=== PATIENT | female | born 1980 | race Hispanic/Latino ===

== ENCOUNTER 2017-01-19 14:45 | Emergency (ER) | payer MEDICAID, OTHER ==
[2017-01-19 14:45] VITALS: BMI 19.5
[2017-01-19 15:06] VITALS: BP 108/62; PULSE 75; RESP 16; TEMP 98; O2SAT 99
--- NOTE | 2017-01-19 16:33 | ED PDOC ---
HPI: Female Pain Time Seen by Provider: 01/19/17 15:01 Chief Complaint (Nursing): Female Genitourinary Chief Complaint (Provider): Burning on urination, urinary frequency x 2 days History Per: Patient History/Exam Limitations: no limitations Onset/Duration Of Symptoms: Days Current Symptoms Are (Timing): Still Present Severity: Moderate Quality Of Discomfort: Burning Associated Symptoms: Other (No back pain ). denies: Fever, Chills, Nausea, Vomiting, Loss Of Appetite Alleviating Factors: None Additional Complaint(s): PT states she has gotten kidney infection in the past and was worried when pain began. No fever/chills. No N/V. No back pain. Past Medical History Reviewed: Historical Data, Nursing Documentation, Vital Signs Vital Signs: Last Vital Signs Temp 98.0 F 01/19/17 14:58 Pulse 75 01/19/17 14:58 Resp 16 01/19/17 14:58 BP 108/62 01/19/17 14:58 Pulse Ox 99 01/19/17 14:58 - Medical History PMH: No Chronic Diseases - Surgical History Surgical History: No Surg Hx - Family History Family History: States: No Known Family Hx - Living Arrangements Living Arrangements: With Family - Social History Current smoker - smoking cessation education provided: No Alcohol: None - Home Medications Home Medications: Ambulatory Orders Medication Instructions Recorded Amoxicillin/Clavulanate [Augmentin 1 tab PO BID #20 tab 06/27/15 875 MG-125 MG] Fluticasone Nasal [Flonase] 1 spr NS DAILY #1 spr 06/27/15 Ciprofloxacin [Cipro] 500 mg PO BID #10 tab 01/19/17 - Allergies Allergies/Adverse Reactions: Allergies Allergy/AdvReac Type Severity Reaction Status Date / Time No Known Allergies Allergy Verified 07/22/16 14:28 Review of Systems ROS Statement: Except As Marked, All Systems Reviewed And Found Negative Gastrointestinal: Negative for: Nausea, Vomiting Genitourinary Female: Positive for: Dysuria, Pelvic Pain Physical Exam - Reviewed Nursing Documentation Reviewed: Yes Vital Signs Reviewed: Yes - Physical Exam Appears: Positive for: Well, Non-toxic, No Acute Distress Head Exam: Positive for: ATRAUMATIC, NORMAL INSPECTION, NORMOCEPHALIC Skin: Positive for: Normal Color, Warm, DRY Eye Exam: Positive for: Normal appearance ENT: Positive for: Normal ENT Inspection Neck: Positive for: Normal, Painless ROM Cardiovascular/Chest: Positive for: Regular Rate, Rhythm Respiratory: Positive for: CNT, Normal Breath Sounds Gastrointestinal/Abdominal: Positive for: Normal Exam, Bowel Sounds, Soft, Other ((-) CVA tenderness to percussion ) Back: Positive for: Normal Inspection Extremity: Positive for: Normal ROM Neurologic/Psych: Positive for: Alert, Oriented - Laboratory Results Urine POC: Negative - ECG O2 Sat by Pulse Oximetry: 99 Pulse Ox Interpretation: Normal Disposition - Clinical Impression Clinical Impression: UTI (urinary tract infection) - Patient ED Disposition Is Patient to be Admitted: No Counseled Patient/Family Regarding: Diagnosis, Need For Followup, Rx Given - Disposition Disposition: Routine/Home Disposition Time: 16:27 Condition: GOOD Prescriptions: Ciprofloxacin [Cipro] 500 mg PO BID #10 tab Instructions: Urinary Tract Infection in Women (ED) Forms: [facility] ED School/Work Excuse
== END 2017-01-19 16:37 | disposition home or self-care (01) ==
LOC: H.ER 14:45
DX: N39.0 Urinary tract infection, site not specified (principal)

== ENCOUNTER 2017-02-19 13:56 | Emergency (ER) | payer OTHER ==
[2017-02-19 13:56] VITALS: BMI 19.5
[2017-02-19 14:38] VITALS: PULSE 61; RESP 16; TEMP 98; O2SAT 98
--- NOTE | 2017-02-19 16:01 | RAD ---
PROCEDURE: Left 5th toe dated 02/19/2017. HISTORY: pain, swelling, hit toe COMPARISON: No prior study available for comparison. TECHNIQUE: PA view of the foot and cone-down views of the right 5th toe performed. FINDINGS: No evidence of acute displaced fracture nor dislocation. The osseous structures intact. There appears to be mild soft tissue swelling over the 5th MTP joint and head of the 5th metatarsal laterally however no radiopaque foreign bodies IMPRESSION: No acute fractures nor dislocations. If symptoms persist or occult fracture suspected clinically consider repeat radiographs in 5-10 days as most fractures should become radiographically evident in this timeframe. . There is mild soft tissue swelling 5th metatarsal and proximal margin of the proximal phalanx region.
--- NOTE | 2017-02-19 16:02 | ED PDOC ---
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 History Per: Patient History/Exam Limitations: no limitations Onset/Duration Of Symptoms: Days (3) Current Symptoms Are (Timing): Still Present Past Medical History Reviewed: Historical Data, Nursing Documentation, Vital Signs Vital Signs: Last Vital Signs Temp 98.0 F 02/19/17 14:34 Pulse 61 02/19/17 14:34 Resp 16 02/19/17 14:34 BP 114/59 L 02/19/17 14:34 Pulse Ox 98 02/19/17 14:34 - Medical History PMH: No Chronic Diseases - Surgical History Surgical History: No Surg Hx - Family History Family History: States: No Known Family Hx - Living Arrangements Living Arrangements: With Family - Social History Current smoker - smoking cessation education provided: No Alcohol: Occasional - Home Medications Home Medications: Ambulatory Orders Medication Instructions Recorded Amoxicillin/Clavulanate [Augmentin 1 tab PO BID #20 tab 06/27/15 875 MG-125 MG] Fluticasone Nasal [Flonase] 1 spr NS DAILY #1 spr 06/27/15 Ciprofloxacin [Cipro] 500 mg PO BID #10 tab 01/19/17 - Allergies Allergies/Adverse Reactions: Allergies Allergy/AdvReac Type Severity Reaction Status Date / Time No Known Allergies Allergy Verified 02/19/17 14:34 Review of Systems ROS Statement: Except As Marked, All Systems Reviewed And Found Negative Constitutional: Negative for: Fever, Chills Skin: Positive for: Bruising Physical Exam - Reviewed Nursing Documentation Reviewed: Yes Vital Signs Reviewed: Yes - Physical Exam Appears: Positive for: Well, Non-toxic, No Acute Distress Head Exam: Positive for: ATRAUMATIC, NORMAL INSPECTION, NORMOCEPHALIC Skin: Positive for: Warm. Negative for: Normal Color (Mild ecchymosis of the right 5th digit) Eye Exam: Positive for: EOMI, Normal appearance, PERRL ENT: Positive for: Normal ENT Inspection Neck: Positive for: Normal, Painless ROM Respiratory: Negative for: Accessory Muscle Use, Respiratory Distress Back: Positive for: Normal Inspection Extremity: Positive for: Normal ROM, Tenderness (right 5th digit ) Neurologic/Psych: Positive for: Alert, Oriented - ECG O2 Sat by Pulse Oximetry: 98 Medical Decision Making Medical Decision Making: x-ray without acute fracture or dislocation. Disposition - Clinical Impression Clinical Impression: Injury of toe - Patient ED Disposition Is Patient to be Admitted: No Counseled Patient/Family Regarding: Diagnosis, Need For Followup, Rx Given - Disposition Disposition: Routine/Home Disposition Time: 16:00 Condition: GOOD Additional Instructions: Ice, elevation Instructions: Foot Contusion (ED) Forms: [facility] (Romanian), [facility] ED School/Work Excuse
[2017-02-19 17:01] VITALS: BP 120/76
== END 2017-02-19 16:39 | disposition home or self-care (01) ==
LOC: H.ER 13:56
DX: S99.921A Unspecified injury of right foot, initial encounter (principal); W22.8XXA Striking against or struck by other objects, initial encounter; Y92.89 Other specified places as the place of occurrence of the external cause

== ENCOUNTER 2017-08-31 18:50 | Emergency (ER) | payer MEDICAID, OTHER ==
[2017-08-31 18:50] VITALS: BMI 19.5
[2017-08-31 19:09] VITALS: RESP 18; O2SAT 100
--- NOTE | 2017-08-31 20:21 | ED PDOC ---
HPI: Abdomen Chief Complaint (Provider): samanta been vomiting and having diarrhea all day History Per: Patient History/Exam Limitations: no limitations Onset/Duration Of Symptoms: Hrs Outside of [place] travel?: No Current Symptoms Are (Timing): Still Present Context: Other (several sick contacts ) Severity: None Pain Scale Rating Of: 0 Quality Of Discomfort: Cramping Associated Symptoms: Chills, Nausea, Vomiting, Diarrhea, Loss Of Appetite Exacerbating Factors: Food Alleviating Factors: None <Deepak Mcfadden - Last Filed: 09/01/17 00:43> <Nate Arias - Last Filed: 09/01/17 01:53> Time Seen by Provider: 08/31/17 19:41 Chief Complaint (Nursing): Abdominal Pain Additional Complaint(s): 37 y/o @ 14 weeks GA via LMP presents complaining of nausea, vomiting, and diarrhea since 11am today. Pt reports 3 family members with similar symptoms. Has not been able to tolerate anything by mouth today. Symptoms are associated with chills. No other complaints. Denies urinary symptoms, vaginal bleeding. No hx of hyperemesis. (Deepak Mcfadden) Supervising Attending Note - Supervising Attending Note The Documented history was done by the: Physician Research Specialist, Attending Physician The documented physical exam was done by the: Physician Research Specialist, Attending Physician The documented procedures were done by the: Physician Research Specialist, Attending Physician - Attestation: I have personally seen and examined this patient.: Yes I have fully participated in the care of the patient.: Yes I have reviewed all pertinent clinical information: Yes <Nate Arias - Last Filed: 09/01/17 01:53> Past Medical History Reviewed: Nursing Documentation, Vital Signs - Family History Family History: States: No Known Family Hx <Deepak Mcfadden - Last Filed: 09/01/17 00:43> Reviewed: Historical Data - Surgical History Surgical History: No Surg Hx <Nate Arias - Last Filed: 09/01/17 01:53> Vital Signs: Last Vital Signs Temp 97.9 F 09/01/17 00:58 Pulse 89 09/01/17 00:58 Resp 18 09/01/17 00:58 BP 108/62 09/01/17 00:58 Pulse Ox 100 09/01/17 00:58 - Home Medications Home Medications: Ambulatory Orders Medication Instructions Recorded Amoxicillin/Clavulanate [Augmentin 1 tab PO BID #20 tab 06/27/15 875 MG-125 MG] Fluticasone Nasal [Flonase] 1 spr NS DAILY #1 spr 06/27/15 Ciprofloxacin [Cipro] 500 mg PO BID #10 tab 01/19/17 Ondansetron ODT [Zofran ODT] 4 mg PO Q8 PRN #12 odt 09/01/17 - Allergies Allergies/Adverse Reactions: Allergies Allergy/AdvReac Type Severity Reaction Status Date / Time No Known Allergies Allergy Verified 08/31/17 19:13 Review of Systems Constitutional: Positive for: Chills Eyes: Negative for: Vision Change, Conjunctivae Inflammation Cardiovascular: Negative for: Chest Pain, Palpitations, Orthopnea, Edema, Light Headedness Respiratory: Negative for: Cough, Shortness of Breath, Hemoptysis, SOB with Exertion, Wheezing Gastrointestinal: Positive for: Nausea, Vomiting, Diarrhea. Negative for: Abdominal Pain, Constipation, Melena, Hematochezia, Hematemesis Genitourinary Female: Negative for: Dysuria, Frequency, Incontinence, Hematuria , Vaginal Discharge, Vaginal Bleeding, Pelvic Pain, Rash Musculoskeletal: Negative for: Neck Pain Skin: Negative for: Rash, Bruising Neurological: Negative for: Weakness, Numbness, Incoordination <Deepak Mcfadden - Last Filed: 09/01/17 00:43> ROS Statement: Except As Marked, All Systems Reviewed And Found Negative <Nate Arias - Last Filed: 09/01/17 01:53> Physical Exam - Reviewed Vital Signs Reviewed: Yes - Physical Exam Appears: Positive for: Non-toxic, No Acute Distress Head Exam: Positive for: ATRAUMATIC, NORMAL INSPECTION, NORMOCEPHALIC Skin: Positive for: Normal Color, Warm, Dry Eye Exam: Positive for: Normal appearance, EOMI, PERRL ENT: Positive for: Other (Dry mucous membrances ). Negative for: Nasal Congestion, Pharyngeal Erythema, Tonsillar Exudate Neck: Positive for: Normal, Painless ROM, Supple Cardiovascular/Chest: Positive for: Regular Rate, Rhythm, Chest Non Tender, Tachycardia. Negative for: Edema, Gallop, JVD, Murmur, Bradycardia Respiratory: Positive for: Normal Breath Sounds. Negative for: Rales, Rhonchi, Stridor, Wheezing Pulses-Dorsalis Pedis (L): 2+ Pulses-Dorsalis Pedis (R): 2+ Pulses-Radial (L): 2+ Pulses-Radial (R): 2+ Gastrointestinal/Abdominal: Positive for: Normal Exam, Bowel Sounds (normal BS) , Soft, Tenderness, Other. Negative for: Organomegaly, Mass, Distended, Guarding, Rebound, Hernia, Asicites Back: Negative for: L CVA Tenderness, R CVA Tenderness Extremity: Positive for: Normal ROM, Capillary Refill (<2s). Negative for: Pedal Edema, Calf Tenderness Lymphatic: Negative for: Adenopathy Neurologic/Psych: Positive for: Alert, food order delivery runner II-XII, Oriented <Deepak Mcfadden - Last Filed: 09/01/17 00:43> - Reviewed Nursing Documentation Reviewed: Yes <Nate Arias - Last Filed: 09/01/17 01:53> - Laboratory Results Result Diagrams: 08/31/17 20:50 08/31/17 20:50 - ECG O2 Sat by Pulse Oximetry: 100 <Deepak Mcfadden - Last Filed: 09/01/17 00:43> - Laboratory Results Result Diagrams: 08/31/17 20:50 08/31/17 20:50 - Progress Re-evaluation Time: 00:40 Condition: Re-examined, Improved <Nate Arias - Last Filed: 09/01/17 01:53> - Progress ED Course And Treament: suspected Gastroenteritis, food intoxication CBC BMP Udip UA 2 L NS bolus 10mg Reglan IVP OB U/S pt completed course of IV fluids, tolerated PO intake, reported feeling much better after treatment OB u/s reviewed, HR approx 168 BPM no vomiting in ER (Deepak Mcfadden) Disposition - Patient ED Disposition Is Patient to be Admitted: No - Disposition Disposition: Routine/Home Disposition Time: 00:44 <Deepak Mcfadden - Last Filed: 09/01/17 00:43> Doctor Will See Patient In The: Office Counseled Patient/Family Regarding: Studies Performed, Diagnosis, Need For Followup <Nate Arias - Last Filed: 09/01/17 01:53> - Clinical Impression Clinical Impression: Gastroenteritis - Disposition Condition: GOOD Additional Instructions: follow up with your OB-LOADING CHECKER in 2-3 days drink plenty of fluids Prescriptions: Ondansetron ODT [Zofran ODT] 4 mg PO Q8 PRN #12 odt PRN Reason: Nausea/Vomiting Instructions: Diarrhea in Adolescents and Adults, Gastroenteritis (ED) Forms: [facility] ED School/Work Excuse
[2017-08-31] MEDS: Sodium Chloride 0.9% 1,000 ML IV SCH ×2 (20:55→22:07)
[2017-08-31 21:04] LABS: ALBUMIN 4.1 g/dL (3.5-5.0); ALT/SGPT 19 U/L (9-52); AST/SGOT 19 U/L (14-36); BLOOD UREA NITROGEN 12 mg/dl (7-17); CALCIUM 9.7 mg/dL (8.4-10.2); GFR AFRICAN-AMERICAN > 60; GFR NON-AFRICAN AMERICAN > 60; HEMOGLOBIN 14.9 g/dL (12.0-16.0); MEAN CORPUSCULAR HEMOGLOBIN 31.3 pg (27.0-31.0); MEAN CORPUSCULAR HGB CONC 34.1 g/dL (33.0-37.0); RBC 4.76 Mil/uL (3.80-5.20); RED CELL DISTRIBUTION WIDTH 12.7 % (11.5-14.5)
[2017-08-31 21:28] LABS: MEAN CELL VOLUME 91.7 fl (81.0-99.0); WHITE BLOOD COUNT 19.8 K/uL (4.8-10.8)
[2017-08-31 21:34] LABS: SQUAMOUS EPITHIAL 8 /hpf (0-5); URINE AMORPHOUS SEDIMENT RARE /ul (<OCC); URINE BILIRUBIN NEGATIVE (NEGATIVE); URINE BLOOD NEGATIVE (NEGATIVE); URINE CLARITY CLOUDY (Clear); URINE COLOR AMBER (YELLOW); URINE GLUCOSE (UA) NEG (Normal); URINE LEUKOCYTE ESTERASE NEG Leu/uL (Negative); URINE PROTEIN 100 mg/dL (NEGATIVE); URINE UROBILINOGEN 0.2-1.0 mg/dL (0.2-1.0)
[2017-09-01 01:07] VITALS: BP 108/62; PULSE 89; TEMP 97.9
--- NOTE | 2017-09-01 12:02 | US ---
PROCEDURE: First trimester ultrasound Menstrual status: LMP uncertain HISTORY: vomiting COMPARISON: None available. TECHNIQUE: Standard protocol for this study/examination. FINDINGS: Breech presentation. Posterior Placenta. No evidence of abruption or previa Gestational age derived from LMP Cannot be ascertained based in the absence of a reliable/ known LMP Gestational age derived from the following biometric parameters 14 weeks 4 days . Biparietal diameter 2.6 cm Head circumference9.9 cm Abdominal circumference 8.2 cm Femur length 1.5 cm Estimated weight 700.9 g Calculated cardiac rate 168 beats per min. IVONE based on LMP: Cannot be ascertained based in the absence of a reliable/ known LMP IVONE based on biometry: 02/26/2018 IMPRESSION: Fourteen weeks 4 days live intrauterine gestation. Concordant results (preliminary interpretation) provided by [facility]. Procedure Completed: 00:15 Preliminary ([facility]) Report: Dictated and Authenticated: 00:42 Final Interpretation: 12:01
== END 2017-09-01 01:07 | disposition home or self-care (01) ==
LOC: H.ER 18:50
DX: K52.9 Noninfective gastroenteritis and colitis, unspecified (principal); Z33.1 Pregnant state, incidental
CPT/HCPCS: 76815; 80053; 81003; 81025; 85027; 96374; 99283; J2765; J7040

== ENCOUNTER 2017-12-14 12:21 | Emergency (ER) | payer MEDICAID ==
--- NOTE | 2017-12-14 14:19 | OBHP ---
Datetime: 12/14/2017 13:22 IP Adm Impression: , intrauterine IP Chief Complaint Other: increased movement IP Admit Plan: Discharge home Admit Comment, IP Provider: 37 yo at 29+1 weeks gestational age presented to [facility] with compl aint/concern due to increased movement. States she was laying in bed this morning and the baby was moving more than usual. Also states she has been stressed out a lot over the last few days due to issues with fiance and thinks she made herself more worried- states she feels safe at home with fian ce. Denies contractions, loss of fluid or any vaginal bleeding. States she feels some pelvic pressur e at times. Denies chest pain, dyspnea, nausea, vomiting, diarrhea, constipation, dysuria, states she has lowe r extremity edema at times. PNC: Dr. Sasha Hayden at [facility] So far states course has been unremarkable, aside from having UTI which she was treated f or initially with macrobid in September/October, and recently was prescribed amoxicillin by OB provider due to urine culture results. 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 Discharge home and follow up with Dr. Hayden at [facility] within 1 week. Pt seen and examined with Dr. Pat. [email or web address] Attending Note: Paatient was seen and examined with the resident and I Agree with the above assess ment. Bi Extremities - PN: Normal Abdomen - PN: Normal Back - PN: Normal Lungs - PN: Normal Heart - PN: Normal Neurologic - PN: Normal HEENT - PN: Normal General - PN: Normal FHR - Baseline A Provider: 150 EGA AdmitDate IP: 29.1 Vital Signs Provider: Reviewed IP Chief Complaint: Maternal discomfort NICHD Variability Prov Fetus A: Moderate 6-25bpm NICHD Accel Fetus A IP Provider: [id number] FHR Category Provider Fetus A: Category I NICHD Decel Fetus A IP Provider: None Dilatation, Provider: 0 Genitourinary Exam: Normal
[2017-12-14 21:50] VITALS: BP 100/51; PULSE 78; RESP 20; TEMP 98.9; O2SAT 100
== END 2017-12-14 14:20 | disposition home or self-care (01) ==
LOC: H.EROB2 12:21
DX: O76 Abnormality in fetal heart rate and rhythm complicating labor and delivery (principal); Z3A.29 29 weeks gestation of pregnancy

== ENCOUNTER 2018-10-25 23:05 | Emergency (ER) | payer MEDICAID ==
[2018-10-25 23:05] VITALS: BMI 19.5
[2018-10-25 23:14] VITALS: BP 129/63; PULSE 79; RESP 18; TEMP 98.2; O2SAT 99
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
== END 2018-10-26 01:11 | disposition home or self-care (01) ==
LOC: H.ER 23:05
DX: F10.94 Alcohol use, unspecified with alcohol-induced mood disorder (principal)